=== PATIENT | male | born 1955 | race Caucasian/White ===

== ENCOUNTER 2018-03-31 12:38 | Emergency (ER) | payer BC, MEDICAID, OTHER ==
[~2018-03-31] VITALS: Ht 185.4 cm; Wt 105.0 kg
[~2018-03-31 12:38] MED LIST: ATOR10TA PO; LISI-604 PO; PANT-47 PO; PHEN100C4 PO
[2018-03-31 13:16] LABS: BASOPHILS % (AUTO) 0.7 % (0-1); EOSINOPHILS # (AUTO) 0.2 X10'3 (0-0.9); EOSINOPHILS % (AUTO) 3.3 % (0-6); HEMATOCRIT 43.3 % (42.0-52.0); HEMOGLOBIN 14.8 g/dl (14.0-17.9); LYMPHOCYTES # (AUTO) 1.3 X10'3 (1.1-4.8); LYMPHOCYTES % (AUTO) 24.8 % (21-51); MEAN CORPUSCULAR HEMOGLOBIN 33.7 PG (27.0-31.0); MEAN CORPUSCULAR HGB CONC 34.2 % (33.0-36.5); MEAN CORPUSCULAR VOLUME 98.4 FL (78-98); MEAN PLATELET VOLUME 8.8 FL (7.4-10.4); MONOCYTES # (AUTO) 0.7 X10'3 (0-0.9); MONOCYTES % (AUTO) 12.9 % (2-12); NEUTROPHILS # (AUTO) 3.2 X10'3 (1.8-7.7); NEUTROPHILS % (AUTO) 58.3 % (42-75); PLATELET COUNT 165 X10'3 (140-440); WHITE BLOOD COUNT 5.4 X10'3 (4.5-11.0)
[2018-03-31 13:31] LABS: ALANINE AMINOTRANSFERASE 60 U/L (12-78); ALBUMIN 3.6 G/DL (3.4-5.0); ALBUMIN/GLOBULIN RATIO 1.2 (1.1-1.5); ALKALINE PHOSPHATASE 97 IU/L (46-116); ANION GAP 8 (8-16); ASPARTATE AMINO TRANSFERASE 25 U/L (10-37); BILIRUBIN,TOTAL 0.4 MG/DL (0.1-1.0); BLOOD UREA NITROGEN 12 MG/DL (7-18); CALCIUM 11.2 MG/DL (8.5-10.1); CHLORIDE 107 MMOL/L (99-107); GLUCOSE 162 MG/DL (70-104); POTASSIUM 4.1 MMOL/L (3.5-5.1); SODIUM 141 MMOL/L (135-145); TOTAL CARBON DIOXIDE 25.8 MMOL/L (24-32); TOTAL PROTEIN 6.6 G/DL (6.4-8.2); eGFR 75 ML/MIN
[2018-03-31 14:10] VITALS: BP 150/85
== END 2018-03-31 14:11 | disposition home or self-care (01) ==
LOC: ER 12:39
DX: R42 Dizziness and giddiness (principal); R11.2 Nausea with vomiting, unspecified; R53.83 Other fatigue; R19.7 Diarrhea, unspecified; I10 Essential (primary) hypertension; Z90.49 Acquired absence of other specified parts of digestive tract; Z88.6 Allergy status to analgesic agent; Z88.8 Allergy status to other drugs, medicaments and biological substances; Z79.899 Other long term (current) drug therapy; Z98.890 Other specified postprocedural states
CPT/HCPCS: 36415; 80053; 80185; 85025; 99284

== ENCOUNTER 2018-04-20 07:23 | Outpatient (CLI) | payer BC | END 2018-04-20 23:59 | disposition home or self-care (01) | LOC: RAD 07:23 | PROVIDERS: ATTEND Family Medicine | DX: G40.909 Epilepsy, unspecified, not intractable, without status epilepticus (principal); R42 Dizziness and giddiness; I10 Essential (primary) hypertension; Z87.891 Personal history of nicotine dependence | CPT/HCPCS: 95816 ==

== ENCOUNTER 2018-06-30 20:51 | Inpatient (IN) | payer BC ==
[~2018-06-30] VITALS: Ht 185.4 cm; Wt 102.0 kg
[2018-06-30 21:15] LABS: BASOPHILS % (AUTO) 0.4 % (0-1); EOSINOPHILS # (AUTO) 0.1 X10'3 (0-0.9); EOSINOPHILS % (AUTO) 0.9 % (0-6); HEMATOCRIT 41.6 % (42.0-52.0); HEMOGLOBIN 14.5 g/dl (14.0-17.9); LYMPHOCYTES # (AUTO) 1.3 X10'3 (1.1-4.8); LYMPHOCYTES % (AUTO) 13.9 % (21-51); MEAN CORPUSCULAR HEMOGLOBIN 33.9 PG (27.0-31.0); MEAN CORPUSCULAR HGB CONC 34.7 % (33.0-36.5); MEAN CORPUSCULAR VOLUME 97.6 FL (78-98); MEAN PLATELET VOLUME 8.7 FL (7.4-10.4); MONOCYTES # (AUTO) 1.2 X10'3 (0-0.9); MONOCYTES % (AUTO) 12.9 % (2-12); NEUTROPHILS # (AUTO) 6.8 X10'3 (1.8-7.7); NEUTROPHILS % (AUTO) 71.9 % (42-75); PLATELET COUNT 142 X10'3 (140-440); RED BLOOD COUNT 4.26 X10'6 (4.70-6.10); RED CELL DISTRIBUTION WIDTH 11.6 % (11.5-14.5); WHITE BLOOD COUNT 9.5 X10'3 (4.5-11.0)
[2018-06-30] MEDS ORDERED: ondansetron/PF 4mg/2ml inj IV ONE ×2 (21:25→22:25)
[2018-06-30] MEDS ORDERED: morphine 4 MG/ML inj SYRINge IV ONE ×2 (21:25→23:10)
[2018-06-30 21:27] LABS: PARTIAL THROMBOPLASTIN TIME 25 SECONDS (22-32); PROTHROMBIN TIME 10.1 SECONDS (9.0-12.0)
[2018-06-30 21:37] LABS: ALANINE AMINOTRANSFERASE 49 U/L (12-78); ALBUMIN 3.6 G/DL (3.4-5.0); ALBUMIN/GLOBULIN RATIO 1.1 (1.1-1.5); ALKALINE PHOSPHATASE 113 IU/L (46-116); ANION GAP 8 (8-16); ASPARTATE AMINO TRANSFERASE 20 U/L (10-37); BILIRUBIN,TOTAL 0.4 MG/DL (0.1-1.0); BLOOD UREA NITROGEN 12 MG/DL (7-18); BUN/CREATININE RATIO 10.7 (5.4-32.0); CALCIUM 10.8 MG/DL (8.5-10.1); CHLORIDE 104 MMOL/L (99-107); CREATININE 1.12 MG/DL (0.60-1.10); GLUCOSE 182 MG/DL (70-104); SODIUM 137 MMOL/L (135-145); TOTAL CARBON DIOXIDE 25.2 MMOL/L (24-32); TOTAL PROTEIN 6.9 G/DL (6.4-8.2); eGFR 66 ML/MIN
[2018-06-30] MEDS ORDERED: iohexol 350MG/ML 100ml bottle IV ONE (21:49)
[2018-06-30] MEDS ORDERED: heparin 10,000 units/1 ML INJ IV ONE (23:15)
[2018-06-30] MEDS ORDERED: heparin 10,000 units/1 ML INJ IV PRN (23:15)
[2018-06-30] MEDS ORDERED: PHEN100C4 PO (23:22)
[2018-06-30 23:37] LABS: BASOPHILS % (AUTO) 0.3 % (0-1); EOSINOPHILS % (AUTO) 0.1 % (0-6); HEMATOCRIT 40.9 % (42.0-52.0); HEMOGLOBIN 14.2 g/dl (14.0-17.9); LYMPHOCYTES % (AUTO) 10.2 % (21-51); MEAN CORPUSCULAR HEMOGLOBIN 33.8 PG (27.0-31.0); MEAN CORPUSCULAR HGB CONC 34.7 % (33.0-36.5); MEAN CORPUSCULAR VOLUME 97.2 FL (78-98); MEAN PLATELET VOLUME 8.7 FL (7.4-10.4); MONOCYTES # (AUTO) 1.1 X10'3 (0-0.9); MONOCYTES % (AUTO) 10.7 % (2-12); NEUTROPHILS # (AUTO) 7.9 X10'3 (1.8-7.7); NEUTROPHILS % (AUTO) 78.7 % (42-75); PLATELET COUNT 137 X10'3 (140-440); RED BLOOD COUNT 4.21 X10'6 (4.70-6.10); WHITE BLOOD COUNT 10.1 X10'3 (4.5-11.0)
[2018-07-01] MEDS ORDERED: acetaminophen 325mg tablet PO PRN (01:45)
[2018-07-01] MEDS ORDERED: potassium Cl 40MEQ/NS 500ml 500 ML IV PRN ×2 (01:45)
[2018-07-01] MEDS ORDERED: heparin 10,000 units/1 ML INJ IV PRN (01:45)
[2018-07-01] MEDS ORDERED: magnesium hydroxide 30ml (MOM) UD suspension PO PRN (01:45)
[2018-07-01] MEDS ORDERED: ondansetron/PF 4mg/2ml inj IV PRN (01:45)
[2018-07-01] MEDS ORDERED: mag hydrox/Alum hydrox/simeth 30ml oral suspension PO PRN (01:45)
[2018-07-01] MEDS ORDERED: magnesium 4gm in 100ml NS 100 ML IV PRN (01:45)
[2018-07-01] MEDS ORDERED: ipratropium/albuterol 3ml nebule NEB PRN (01:45)
[2018-07-01] MEDS ORDERED: morphine 4 MG/ML inj SYRINge IV PRN (01:45)
[2018-07-01] MEDS ORDERED: magnesium 1gm/100ml D5W IVPB 100 ML IV PRN (01:45)
[2018-07-01] MEDS ORDERED: potassium Cl 20 mEq SR tablet PO PRN ×2 (01:45)
[2018-07-01 02:55] VITALS: BP 155/77
[2018-07-01] MEDS: morphine 4 MG/ML inj SYRINge IV PRN ×5 (03:01→19:08)
[2018-07-01] MEDS: normal saline 1000ml 1,000 ML IV SCH ×3 (03:49→15:02)
[2018-07-01] MEDS ORDERED: nitroGLYCERIN 0.4mg/hour patch TD ONE (04:45)
[2018-07-01 06:00] VITALS: BP 155/76
[2018-07-01 06:05] LABS: BASOPHILS % (AUTO) 0.3 % (0-1); EOSINOPHILS # (AUTO) 0.1 X10'3 (0-0.9); EOSINOPHILS % (AUTO) 1.1 % (0-6); HEMOGLOBIN 14.2 g/dl (14.0-17.9); LYMPHOCYTES # (AUTO) 1.3 X10'3 (1.1-4.8); LYMPHOCYTES % (AUTO) 13.2 % (21-51); MEAN CORPUSCULAR HEMOGLOBIN 34.1 PG (27.0-31.0); MEAN CORPUSCULAR HGB CONC 34.7 % (33.0-36.5); MEAN CORPUSCULAR VOLUME 98.4 FL (78-98); MEAN PLATELET VOLUME 9.5 FL (7.4-10.4); MONOCYTES # (AUTO) 1.4 X10'3 (0-0.9); MONOCYTES % (AUTO) 14.1 % (2-12); NEUTROPHILS # (AUTO) 7.3 X10'3 (1.8-7.7); NEUTROPHILS % (AUTO) 71.3 % (42-75); PLATELET COUNT 133 X10'3 (140-440); RED BLOOD COUNT 4.16 X10'6 (4.70-6.10); RED CELL DISTRIBUTION WIDTH 12.1 % (11.5-14.5); WHITE BLOOD COUNT 10.2 X10'3 (4.5-11.0)
[2018-07-01 06:26] LABS: PROTHROMBIN TIME 10.7 SECONDS (9.0-12.0)
[2018-07-01] MEDS: K and/or MAG REPLACEMENT MC SCH (08:00)
[2018-07-01] MEDS ORDERED: atorvastatin 10mg tablet PO SCH (09:05)
[2018-07-01 09:42] LABS: PARTIAL THROMBOPLASTIN TIME 38 SECONDS (22-32)
[2018-07-01] MEDS: pantoprazole 40mg Tablet.DR PO SCH (09:43)
[2018-07-01] MEDS: lisinopril 10 MG tablet PO SCH (09:43)
[2018-07-01] MEDS: phenytoin sod ER 100mg capsule PO SCH ×2 (10:25→19:03)
[2018-07-01 11:00] VITALS: BP 115/65
[2018-07-01] MEDS ORDERED: enoxaparin 100mg/ml syringe SUBCUT SCH ×2 (11:15→20:00)
[2018-07-01] MEDS: enoxaparin 100mg/ml syringe SUBCUT SCH (13:00)
[2018-07-01 15:00] VITALS: BP 117/70
[2018-07-01 19:00] VITALS: BP 126/73
[2018-07-01] MEDS ORDERED: warfarin 5mg tablet PO ONE (21:00)
[2018-07-01] MEDS: docusate sod 250mg capsule PO SCH (21:40)
[2018-07-01 23:00] VITALS: BP 126/66
[2018-07-01] MEDS: HYDROcodone/acetaminophen 10/325mg tab PO PRN (23:32)
[2018-07-02] MEDS: enoxaparin 100mg/ml syringe SUBCUT SCH ×2 (01:34→12:51)
[2018-07-02 03:00] VITALS: BP 141/75
[2018-07-02 06:00] VITALS: BP 153/66
[2018-07-02 06:11] LABS: BASOPHILS % (AUTO) 0.2 % (0-1); EOSINOPHILS # (AUTO) 0.1 X10'3 (0-0.9); EOSINOPHILS % (AUTO) 1.7 % (0-6); HEMATOCRIT 37.1 % (42.0-52.0); HEMOGLOBIN 12.7 g/dl (14.0-17.9); LYMPHOCYTES # (AUTO) 1.3 X10'3 (1.1-4.8); LYMPHOCYTES % (AUTO) 15.5 % (21-51); MEAN CORPUSCULAR HEMOGLOBIN 33.7 PG (27.0-31.0); MEAN CORPUSCULAR HGB CONC 34.2 % (33.0-36.5); MEAN CORPUSCULAR VOLUME 98.4 FL (78-98); MEAN PLATELET VOLUME 9.2 FL (7.4-10.4); MONOCYTES # (AUTO) 1.4 X10'3 (0-0.9); MONOCYTES % (AUTO) 16.3 % (2-12); NEUTROPHILS # (AUTO) 5.5 X10'3 (1.8-7.7); NEUTROPHILS % (AUTO) 66.3 % (42-75); PLATELET COUNT 125 X10'3 (140-440); RED BLOOD COUNT 3.77 X10'6 (4.70-6.10); WHITE BLOOD COUNT 8.4 X10'3 (4.5-11.0)
[2018-07-02 06:53] LABS: PROTHROMBIN TIME 10.8 SECONDS (9.0-12.0)
[2018-07-02 07:11] LABS: ALANINE AMINOTRANSFERASE 152 U/L (12-78); ALBUMIN 2.8 G/DL (3.4-5.0); ALBUMIN/GLOBULIN RATIO 0.8 (1.1-1.5); ALKALINE PHOSPHATASE 98 IU/L (46-116); ANION GAP 7 (8-16); ASPARTATE AMINO TRANSFERASE 57 U/L (10-37); BILIRUBIN,TOTAL 0.6 MG/DL (0.1-1.0); BLOOD UREA NITROGEN 14 MG/DL (7-18); BUN/CREATININE RATIO 13.9 (5.4-32.0); CALCIUM 10.5 MG/DL (8.5-10.1); CHLORIDE 103 MMOL/L (99-107); CHOL/HDL RATIO 3.4 (0.00-4.99); CHOLESTEROL 155 MG/DL (0-200); CREATININE 1.01 MG/DL (0.60-1.10); GLUCOSE 146 MG/DL (70-104); HDL CHOLESTEROL 45 MG/DL (35-60); LDL CHOLESTEROL 88 MG/DL (50-100); MAGNESIUM 1.9 MG/DL (1.5-2.4); POTASSIUM 3.9 MMOL/L (3.5-5.1); SODIUM 136 MMOL/L (135-145); TOTAL CARBON DIOXIDE 25.8 MMOL/L (24-32); TOTAL PROTEIN 6.2 G/DL (6.4-8.2); TRIGLYCERIDES 135 MG/DL (20-135); eGFR 74 ML/MIN
[2018-07-02] MEDS: K and/or MAG REPLACEMENT MC SCH (08:00)
[2018-07-02] MEDS: phenytoin sod ER 100mg capsule PO SCH ×2 (08:06→19:17)
[2018-07-02] MEDS: HYDROcodone/acetaminophen 10/325mg tab PO PRN ×3 (08:07→17:20)
[2018-07-02] MEDS: pantoprazole 40mg Tablet.DR PO SCH (08:07)
[2018-07-02] MEDS: lisinopril 10 MG tablet PO SCH (08:07)
[2018-07-02 11:00] VITALS: BP 157/74
[2018-07-02] MEDS: normal saline 1000ml 1,000 ML IV SCH ×2 (16:28→19:26)
[2018-07-02 19:00] VITALS: BP 146/71
[2018-07-02] MEDS ORDERED: warfarin 7.5mg tablet PO ONE (21:00)
[2018-07-02] MEDS: docusate sod 250mg capsule PO SCH (21:19)
[2018-07-02 23:00] VITALS: BP 148/74
[2018-07-03] MEDS: HYDROcodone/acetaminophen 10/325mg tab PO PRN ×2 (00:45→07:53)
[2018-07-03] MEDS: enoxaparin 100mg/ml syringe SUBCUT SCH ×2 (00:45→13:18)
[2018-07-03 03:00] VITALS: BP 152/64
[2018-07-03 04:56] LABS: BASOPHILS % (AUTO) 0.4 % (0-1); EOSINOPHILS # (AUTO) 0.1 X10'3 (0-0.9); EOSINOPHILS % (AUTO) 1.4 % (0-6); HEMATOCRIT 36.3 % (42.0-52.0); HEMOGLOBIN 12.4 g/dl (14.0-17.9); LYMPHOCYTES # (AUTO) 1.4 X10'3 (1.1-4.8); LYMPHOCYTES % (AUTO) 18.1 % (21-51); MEAN CORPUSCULAR HEMOGLOBIN 33.6 PG (27.0-31.0); MEAN CORPUSCULAR HGB CONC 34.2 % (33.0-36.5); MEAN CORPUSCULAR VOLUME 98.2 FL (78-98); MEAN PLATELET VOLUME 9.5 FL (7.4-10.4); MONOCYTES # (AUTO) 1.2 X10'3 (0-0.9); MONOCYTES % (AUTO) 15.1 % (2-12); NEUTROPHILS # (AUTO) 5.3 X10'3 (1.8-7.7); PLATELET COUNT 137 X10'3 (140-440); RED BLOOD COUNT 3.69 X10'6 (4.70-6.10); RED CELL DISTRIBUTION WIDTH 11.1 % (11.5-14.5)
[2018-07-03 05:18] LABS: PROTHROMBIN TIME 10.7 SECONDS (9.0-12.0)
[2018-07-03 06:14] LABS: ALANINE AMINOTRANSFERASE 91 U/L (12-78); ALBUMIN 2.6 G/DL (3.4-5.0); ALBUMIN/GLOBULIN RATIO 0.7 (1.1-1.5); ALKALINE PHOSPHATASE 86 IU/L (46-116); ANION GAP 7 (8-16); ASPARTATE AMINO TRANSFERASE 20 U/L (10-37); BILIRUBIN,TOTAL 0.5 MG/DL (0.1-1.0); BLOOD UREA NITROGEN 12 MG/DL (7-18); CALCIUM 10.2 MG/DL (8.5-10.1); CHLORIDE 106 MMOL/L (99-107); GLUCOSE 137 MG/DL (70-104); MAGNESIUM 1.9 MG/DL (1.5-2.4); POTASSIUM 3.8 MMOL/L (3.5-5.1); SODIUM 136 MMOL/L (135-145); TOTAL CARBON DIOXIDE 22.8 MMOL/L (24-32); TOTAL PROTEIN 6.1 G/DL (6.4-8.2); eGFR 75 ML/MIN
[2018-07-03 07:00] VITALS: BP 148/78
[2018-07-03] MEDS: pantoprazole 40mg Tablet.DR PO SCH (07:52)
[2018-07-03] MEDS: lisinopril 10 MG tablet PO SCH (07:52)
[2018-07-03] MEDS: phenytoin sod ER 100mg capsule PO SCH (07:52)
[2018-07-03] MEDS: K and/or MAG REPLACEMENT MC SCH (07:56)
[2018-07-03] MEDS: normal saline 1000ml 1,000 ML IV SCH (10:31)
[2018-07-03 12:21] VITALS: BP 138/67
[2018-07-03] MEDS ORDERED: LISI10TA4 PO (13:40)
[2018-07-03] MEDS ORDERED: ENOX100D5 SUBCUT (13:40)
[2018-07-03] MEDS ORDERED: WARF10TA50 PO (13:40)
[2018-07-03] MEDS ORDERED: warfarin 10mg tablet PO ONE (21:00)
== END 2018-07-03 14:55 | disposition home or self-care (01) | DRG 176 ==
LOC: ER 20:52 → ED HOLD 07-01 01:45 → PCU 3S 07-01 02:53
PROVIDERS: ADMIT Family Medicine; ATTEND Family Medicine
PROC: B32T1ZZ Computerized Tomography (CT Scan) of Left Pulmonary Artery using Low Osmolar Contrast (ICD-10-PCS; principal; 2018-06-30)
PROC: B3201ZZ Computerized Tomography (CT Scan) of Thoracic Aorta using Low Osmolar Contrast (ICD-10-PCS; 2018-06-30)
PROC: B32S1ZZ Computerized Tomography (CT Scan) of Right Pulmonary Artery using Low Osmolar Contrast (ICD-10-PCS; 2018-06-30)
DX: I26.99 Other pulmonary embolism without acute cor pulmonale (principal); G40.909 Epilepsy, unspecified, not intractable, without status epilepticus; I07.1 Rheumatic tricuspid insufficiency; R91.1 Solitary pulmonary nodule; R79.89 Other specified abnormal findings of blood chemistry; I10 Essential (primary) hypertension; Z82.49 Family history of ischemic heart disease and other diseases of the circulatory system; Z80.8 Family history of malignant neoplasm of other organs or systems; Z87.891 Personal history of nicotine dependence; Z90.49 Acquired absence of other specified parts of digestive tract; Z79.899 Other long term (current) drug therapy; Z88.6 Allergy status to analgesic agent; Z88.8 Allergy status to other drugs, medicaments and biological substances; Z91.018 Allergy to other foods
CPT/HCPCS: 36415; 71045; 71275; 80053; 80061; 83735; 84484; 85025; 85610; 85730; 87070; 93005; 93306; 93970; 94760; 96374; 96375; 96376; 99285; J1644; J1650; J2270; J2405; J7030; Q9967

== ENCOUNTER 2024-01-26 12:59 | Emergency (ER) | payer MEDICARE, OTHER ==
[~2024-01-26] VITALS: Ht 185.4 cm; Wt 104.1 kg
[~2024-01-26 12:59] MED LIST changes: -ATOR10TA PO; +ENOX100D5 SUBCUT; -LISI-604 PO; +LISI10TA27 PO; -PANT-47 PO; +WARF10TA50 PO
[2024-01-26] MEDS ORDERED: TIZA4TAB11 PO (15:16)
[2024-01-26 15:23] VITALS: BP 148/74; PULSE 88; RESP 15; TEMP 98.2; O2SAT 96
== END 2024-01-26 15:26 | disposition home or self-care (01) ==
LOC: ER 12:59
DX: M25.512 Pain in left shoulder (principal); I10 Essential (primary) hypertension; Z88.6 Allergy status to analgesic agent; Z88.8 Allergy status to other drugs, medicaments and biological substances; Z91.018 Allergy to other foods; Z79.899 Other long term (current) drug therapy; Z90.49 Acquired absence of other specified parts of digestive tract
CPT/HCPCS: 73030; 99283; A4565

== ENCOUNTER 2024-01-31 13:37 | Emergency (ER) | payer MEDICARE, OTHER ==
[~2024-01-31] VITALS: Ht 185.4 cm; Wt 104.1 kg
[~2024-01-31 13:37] MED LIST changes: +TIZA4TAB11 PO
[2024-01-31] MEDS ORDERED: PER5325T PO (14:54)
[2024-01-31] MEDS: oxyCODONE/APAP 5-325mg tablet PO ONE (15:10)
[2024-01-31] MEDS: dexamethasone sod phosphate 10mg/ml inj PO STA (15:10)
[2024-01-31] MEDS: normal saline 1000ml 1,000 ML IV ONE (16:40)
[2024-01-31 17:20] VITALS: BP 150/73; PULSE 60; RESP 18; O2SAT 97
[2024-01-31 19:25] VITALS: TEMP 98.1
== END 2024-01-31 19:30 | disposition home or self-care (01) ==
LOC: ER 13:38
DX: S46.912A Strain of unspecified muscle, fascia and tendon at shoulder and upper arm level, left arm, initial encounter (principal); I10 Essential (primary) hypertension; Z88.6 Allergy status to analgesic agent; Z88.8 Allergy status to other drugs, medicaments and biological substances; Z91.018 Allergy to other foods; Z79.899 Other long term (current) drug therapy; Z90.49 Acquired absence of other specified parts of digestive tract; X58.XXXA Exposure to other specified factors, initial encounter; Y93.89 Activity, other specified; Y92.89 Other specified places as the place of occurrence of the external cause; Y99.8 Other external cause status
CPT/HCPCS: 96360; 99284; J1100; J7030

== ENCOUNTER 2024-02-23 15:15 | Inpatient (IN) | payer MEDICARE, OTHER ==
[~2024-02-23] VITALS: Ht 185.4 cm; Wt 90.0 kg
[2024-02-23 17:23] LABS: BILIRUBIN,URINE NEGATIVE (Neg); CLARITY,URINE SLIGHTLY CLOUDY (Clear); GLUCOSE, URINE NEGATIVE (Neg); KETONES,URINE NEGATIVE (Neg); LEUKOCYTE ESTERASE ,URINE NEGATIVE (Neg); NITRITES, URINE NEGATIVE (Neg); OCCULT BLOOD,URINE NEGATIVE (Neg); PH,URINE 5.5 (4.8-8.0); PROTEIN,URINE NEGATIVE (Neg); UROBILINOGEN,URINE 0.2 E.U/dL (0.2-1.0)
[2024-02-23 17:26] LABS: COLOR,URINE DARK YELLOW (Yellow); UA COLLECTION TYPE VOIDED
[2024-02-23] MEDS: CefTRIAXone/D5W-Rocephin 1gm 50 ML IV ONE (17:31)
[2024-02-23] MEDS: normal saline 1000ML IV soln IVB ONE (17:31)
[2024-02-23 17:36] LABS: BACTERIA,URINE FEW /HPF (Neg); CELLULAR CAST 0-4 /LPF (NEGATIVE); RBC,URINE NONE SEEN /HPF (0-2); SQUAMOUS EPITHELIAL CELL,UR NONE SEEN /LPF (FEW)
[2024-02-23 17:37] LABS: CAL OXALATE CRYSTALS 1+ /HPF (NEGATIVE); MUCUS STRANDS FEW /LPF (Neg)
[2024-02-23 17:49] LABS: BASOPHILS % (AUTO) 0.2 % (0-1); EOSINOPHILS % (AUTO) 0.4 % (0-6); HEMOGLOBIN 12.5 g/dl (14.0-17.9); LYMPHOCYTES # (AUTO) 0.9 X10'3 (1.1-4.8); LYMPHOCYTES % (AUTO) 7.2 % (21-51); MEAN CORPUSCULAR HEMOGLOBIN 33.3 PG (27.0-31.0); MEAN CORPUSCULAR HGB CONC 33.8 g/dL (33.0-36.5); MEAN CORPUSCULAR VOLUME 98.6 FL (78-98); MEAN PLATELET VOLUME 8.8 FL (7.4-10.4); MONOCYTES # (AUTO) 1.3 X10'3 (0-0.9); NEUTROPHILS # (AUTO) 10.5 X10'3 (1.8-7.7); NEUTROPHILS % (AUTO) 82.2 % (42-75); PLATELET COUNT 251 X10'3 (140-440); RED BLOOD COUNT 3.76 X10'6 (4.70-6.10); WHITE BLOOD COUNT 12.8 X10'3 (4.5-11.0)
[2024-02-23 18:09] LABS: ALBUMIN 2.2 G/DL (3.4-5.0); ANION GAP 7 (8-16); BLOOD UREA NITROGEN 27 MG/DL (7-18); BUN/CREATININE RATIO 17.4 (10.0-20.0); CALCIUM 11.9 MG/DL (8.5-10.1); CHLORIDE 108 MMOL/L (99-107); CREATININE 1.55 MG/DL (0.60-1.10); GLUCOSE 191 MG/DL (70-104); MAGNESIUM 1.9 MG/DL (1.5-2.4); PHENYTOIN (DILANTIN) 1.1 UG/ML (10.0-20.0); POTASSIUM 3.8 MMOL/L (3.5-5.1); SODIUM 141 MMOL/L (135-145); TOTAL CARBON DIOXIDE 25.7 MMOL/L (24-32); eCRCL 50 ML/MIN; eGFR 45 ML/MIN
[2024-02-23] MEDS ORDERED: potassium Cl 20 mEq SR tablet PO PRN ×2 (21:40)
[2024-02-23] MEDS ORDERED: magnesium 2GM in 50ml NS 50 ML IV PRN (21:40)
[2024-02-23] MEDS ORDERED: magnesium hydroxide 30ml (MOM) UD suspension PO PRN (21:40)
[2024-02-23] MEDS ORDERED: potassium Cl 40MEQ/1/2NS 520ml 520 ML IV PRN (21:40)
[2024-02-23] MEDS ORDERED: acetaminophen 325mg tablet PO PRN (21:40)
[2024-02-23] MEDS ORDERED: magnesium 4gm in 100ml NS 100 ML IV PRN (21:40)
[2024-02-23] MEDS ORDERED: ondansetron/PF 4mg/2ml inj IV PRN (21:40)
[2024-02-23] MEDS: normal saline 1000ml 1,000 ML IV SCH (21:40)
[2024-02-23] MEDS ORDERED: morphine 2 MG/ML inj. syringe IV PRN ×2 (21:40)
[2024-02-23 22:38] LABS: MAGNESIUM 1.9 MG/DL (1.5-2.4)
[2024-02-24] MEDS: phenytoin sod ER 100mg capsule PO SCH (03:08)
[2024-02-24 07:38] VITALS: BP 138/70; PULSE 74; RESP 16; TEMP 97.8; O2SAT 98
[2024-02-24] MEDS: K and/or MAG REPLACEMENT MC SCH (08:00)
[2024-02-24 08:57] LABS: BASOPHILS % (AUTO) 0.4 % (0-1); EOSINOPHILS # (AUTO) 0.2 X10'3 (0-0.9); EOSINOPHILS % (AUTO) 2.3 % (0-6); HEMATOCRIT 35.3 % (42.0-52.0); HEMOGLOBIN 11.8 g/dl (14.0-17.9); LYMPHOCYTES # (AUTO) 1.3 X10'3 (1.1-4.8); MEAN CORPUSCULAR HEMOGLOBIN 33.3 PG (27.0-31.0); MEAN CORPUSCULAR HGB CONC 33.6 g/dL (33.0-36.5); MEAN PLATELET VOLUME 9.1 FL (7.4-10.4); MONOCYTES # (AUTO) 0.9 X10'3 (0-0.9); MONOCYTES % (AUTO) 11.9 % (2-12); NEUTROPHILS # (AUTO) 5.3 X10'3 (1.8-7.7); NEUTROPHILS % (AUTO) 68.4 % (42-75); PLATELET COUNT 219 X10'3 (140-440); RED BLOOD COUNT 3.56 X10'6 (4.70-6.10); RED CELL DISTRIBUTION WIDTH 12.1 % (11.5-14.5); WHITE BLOOD COUNT 7.8 X10'3 (4.5-11.0)
[2024-02-24 09:19] LABS: ALANINE AMINOTRANSFERASE 69 U/L (12-78); ALBUMIN/GLOBULIN RATIO 0.5 (1.1-1.5); ALKALINE PHOSPHATASE 121 IU/L (46-116); ANION GAP 4 (8-16); ASPARTATE AMINO TRANSFERASE 43 U/L (10-37); BILIRUBIN,TOTAL 0.5 MG/DL (0.1-1.0); BLOOD UREA NITROGEN 21 MG/DL (7-18); BUN/CREATININE RATIO 16.9 (10.0-20.0); CALCIUM 11.5 MG/DL (8.5-10.1); CHLORIDE 110 MMOL/L (99-107); CREATININE 1.24 MG/DL (0.60-1.10); GLUCOSE 122 MG/DL (70-104); POTASSIUM 3.6 MMOL/L (3.5-5.1); SODIUM 140 MMOL/L (135-145); TOTAL CARBON DIOXIDE 26.3 MMOL/L (24-32); TOTAL PROTEIN 5.7 G/DL (6.4-8.2); eCRCL 63 ML/MIN; eGFR 58 ML/MIN
[2024-02-24 10:00] VITALS: BP 132/68; PULSE 64; RESP 14; TEMP 97.5
[2024-02-24] MEDS: lisinopril 10 MG tablet PO SCH (10:37)
[2024-02-24] MEDS: apixaban 5mg tablet PO SCH (10:37)
[2024-02-24] MEDS: HYDROcodone/acetaminophen 5mg/325mg tablet PO PRN (19:57)
[2024-02-24 21:42] VITALS: BP 140/61; PULSE 60; RESP 16; TEMP 97.9; O2SAT 96
[2024-02-25 06:26] VITALS: BP 136/59; PULSE 67; RESP 15; TEMP 97.9; O2SAT 98
[2024-02-25 06:57] LABS: BASOPHILS % (AUTO) 0.6 % (0-1); EOSINOPHILS # (AUTO) 0.3 X10'3 (0-0.9); EOSINOPHILS % (AUTO) 4.2 % (0-6); HEMATOCRIT 34.7 % (42.0-52.0); HEMOGLOBIN 11.7 g/dl (14.0-17.9); LYMPHOCYTES # (AUTO) 1.7 X10'3 (1.1-4.8); LYMPHOCYTES % (AUTO) 22.1 % (21-51); MEAN CORPUSCULAR HEMOGLOBIN 33.2 PG (27.0-31.0); MEAN CORPUSCULAR HGB CONC 33.7 g/dL (33.0-36.5); MEAN CORPUSCULAR VOLUME 98.7 FL (78-98); MEAN PLATELET VOLUME 9.4 FL (7.4-10.4); MONOCYTES # (AUTO) 0.9 X10'3 (0-0.9); MONOCYTES % (AUTO) 12.3 % (2-12); NEUTROPHILS # (AUTO) 4.7 X10'3 (1.8-7.7); NEUTROPHILS % (AUTO) 60.8 % (42-75); PLATELET COUNT 206 X10'3 (140-440); RED BLOOD COUNT 3.51 X10'6 (4.70-6.10); RED CELL DISTRIBUTION WIDTH 11.9 % (11.5-14.5); WHITE BLOOD COUNT 7.7 X10'3 (4.5-11.0)
[2024-02-25 07:20] LABS: ALANINE AMINOTRANSFERASE 70 U/L (12-78); ALBUMIN/GLOBULIN RATIO 0.6 (1.1-1.5); ALKALINE PHOSPHATASE 115 IU/L (46-116); ANION GAP 5 (8-16); ASPARTATE AMINO TRANSFERASE 39 U/L (10-37); BILIRUBIN,TOTAL 0.4 MG/DL (0.1-1.0); BLOOD UREA NITROGEN 19 MG/DL (7-18); BUN/CREATININE RATIO 18.1 (10.0-20.0); CALCIUM 11.4 MG/DL (8.5-10.1); CHLORIDE 110 MMOL/L (99-107); CREATININE 1.05 MG/DL (0.60-1.10); GLUCOSE 110 MG/DL (70-104); POTASSIUM 3.5 MMOL/L (3.5-5.1); SODIUM 139 MMOL/L (135-145); TOTAL CARBON DIOXIDE 24.2 MMOL/L (24-32); TOTAL PROTEIN 5.5 G/DL (6.4-8.2); eCRCL 74 ML/MIN; eGFR 70 ML/MIN
[2024-02-25] MEDS: acetaminophen 325mg tablet PO PRN (07:59)
[2024-02-25 10:00] VITALS: BP 142/65; PULSE 74; RESP 19; TEMP 97.7; O2SAT 98
[2024-02-25 19:00] VITALS: RESP 18; O2SAT 96
[2024-02-25 20:06] VITALS: BP 151/70
[2024-02-26 08:15] LABS: BASOPHILS # (AUTO) 0.1 X10'3 (0-0.2); BASOPHILS % (AUTO) 0.8 % (0-1); EOSINOPHILS # (AUTO) 0.3 X10'3 (0-0.9); HEMATOCRIT 35.3 % (42.0-52.0); HEMOGLOBIN 12.1 g/dl (14.0-17.9); LYMPHOCYTES # (AUTO) 1.4 X10'3 (1.1-4.8); LYMPHOCYTES % (AUTO) 19.7 % (21-51); MEAN CORPUSCULAR HEMOGLOBIN 33.7 PG (27.0-31.0); MEAN CORPUSCULAR HGB CONC 34.2 g/dL (33.0-36.5); MEAN CORPUSCULAR VOLUME 98.4 FL (78-98); MEAN PLATELET VOLUME 9.1 FL (7.4-10.4); MONOCYTES # (AUTO) 0.8 X10'3 (0-0.9); MONOCYTES % (AUTO) 10.9 % (2-12); NEUTROPHILS # (AUTO) 4.6 X10'3 (1.8-7.7); NEUTROPHILS % (AUTO) 64.6 % (42-75); PLATELET COUNT 204 X10'3 (140-440); RED BLOOD COUNT 3.59 X10'6 (4.70-6.10); WHITE BLOOD COUNT 7.2 X10'3 (4.5-11.0)
[2024-02-26 08:33] LABS: ALANINE AMINOTRANSFERASE 67 U/L (12-78); ALBUMIN 2.2 G/DL (3.4-5.0); ALBUMIN/GLOBULIN RATIO 0.6 (1.1-1.5); ALKALINE PHOSPHATASE 125 IU/L (46-116); ANION GAP 3 (8-16); ASPARTATE AMINO TRANSFERASE 35 U/L (10-37); BILIRUBIN,TOTAL 0.4 MG/DL (0.1-1.0); BLOOD UREA NITROGEN 19 MG/DL (7-18); BUN/CREATININE RATIO 15.6 (10.0-20.0); CALCIUM 11.8 MG/DL (8.5-10.1); CHLORIDE 109 MMOL/L (99-107); CREATININE 1.22 MG/DL (0.60-1.10); GLUCOSE 113 MG/DL (70-104); MAGNESIUM 1.9 MG/DL (1.5-2.4); POTASSIUM 3.6 MMOL/L (3.5-5.1); SODIUM 140 MMOL/L (135-145); TOTAL CARBON DIOXIDE 27.9 MMOL/L (24-32); TOTAL PROTEIN 5.8 G/DL (6.4-8.2); eCRCL 64 ML/MIN; eGFR 59 ML/MIN
[2024-02-26] MEDS: HYDROcodone/acetaminophen 10/325mg tab PO PRN (09:47)
[2024-02-26 10:00] VITALS: BP 111/77; PULSE 66; RESP 16; TEMP 97.7; O2SAT 97
[2024-02-26 10:04] VITALS: BP 111/77; PULSE 69; RESP 16; TEMP 97.7; O2SAT 98
[2024-02-26 22:00] VITALS: BP 127/31; PULSE 60; RESP 16; TEMP 98; O2SAT 90
[2024-02-27] VITALS (7 sets, daily range): BP systolic 128–140; BP diastolic 47–66; PULSE 55–76; RESP 16–18; TEMP 97.9–98.5; O2SAT 96–98
[2024-02-27 03:18] LABS: BASOPHILS # (AUTO) 0.1 X10'3 (0-0.2); BASOPHILS % (AUTO) 0.8 % (0-1); EOSINOPHILS # (AUTO) 0.3 X10'3 (0-0.9); EOSINOPHILS % (AUTO) 4.1 % (0-6); HEMATOCRIT 33.5 % (42.0-52.0); HEMOGLOBIN 11.3 g/dl (14.0-17.9); LYMPHOCYTES # (AUTO) 1.5 X10'3 (1.1-4.8); LYMPHOCYTES % (AUTO) 21.2 % (21-51); MEAN CORPUSCULAR HEMOGLOBIN 33.2 PG (27.0-31.0); MEAN CORPUSCULAR HGB CONC 33.7 g/dL (33.0-36.5); MEAN CORPUSCULAR VOLUME 98.4 FL (78-98); MEAN PLATELET VOLUME 9.4 FL (7.4-10.4); MONOCYTES # (AUTO) 0.7 X10'3 (0-0.9); MONOCYTES % (AUTO) 10.5 % (2-12); NEUTROPHILS # (AUTO) 4.5 X10'3 (1.8-7.7); NEUTROPHILS % (AUTO) 63.4 % (42-75); PLATELET COUNT 204 X10'3 (140-440); RED BLOOD COUNT 3.41 X10'6 (4.70-6.10); RED CELL DISTRIBUTION WIDTH 12.1 % (11.5-14.5); WHITE BLOOD COUNT 7.1 X10'3 (4.5-11.0)
[2024-02-27 03:42] LABS: ALANINE AMINOTRANSFERASE 64 U/L (12-78); ALBUMIN/GLOBULIN RATIO 0.6 (1.1-1.5); ALKALINE PHOSPHATASE 122 IU/L (46-116); ANION GAP 4 (8-16); ASPARTATE AMINO TRANSFERASE 35 U/L (10-37); BILIRUBIN,TOTAL 0.3 MG/DL (0.1-1.0); BLOOD UREA NITROGEN 21 MG/DL (7-18); BUN/CREATININE RATIO 16.5 (10.0-20.0); CALCIUM 11.7 MG/DL (8.5-10.1); CHLORIDE 108 MMOL/L (99-107); CREATININE 1.27 MG/DL (0.60-1.10); GLUCOSE 128 MG/DL (70-104); POTASSIUM 3.8 MMOL/L (3.5-5.1); SODIUM 141 MMOL/L (135-145); TOTAL CARBON DIOXIDE 29.3 MMOL/L (24-32); TOTAL PROTEIN 5.6 G/DL (6.4-8.2); eCRCL 61 ML/MIN; eGFR 56 ML/MIN
[2024-02-28] VITALS (7 sets, daily range): BP systolic 125–151; BP diastolic 56–67; PULSE 60–73; RESP 13–18; TEMP 97.9–98.7; O2SAT 96–97
[2024-02-28 06:45] LABS: BASOPHILS # (AUTO) 0.1 X10'3 (0-0.2); BASOPHILS % (AUTO) 0.7 % (0-1); EOSINOPHILS # (AUTO) 0.3 X10'3 (0-0.9); EOSINOPHILS % (AUTO) 3.7 % (0-6); HEMATOCRIT 33.6 % (42.0-52.0); HEMOGLOBIN 11.2 g/dl (14.0-17.9); LYMPHOCYTES # (AUTO) 1.6 X10'3 (1.1-4.8); LYMPHOCYTES % (AUTO) 21.1 % (21-51); MEAN CORPUSCULAR HEMOGLOBIN 33.1 PG (27.0-31.0); MEAN CORPUSCULAR HGB CONC 33.4 g/dL (33.0-36.5); MEAN CORPUSCULAR VOLUME 99.1 FL (78-98); MEAN PLATELET VOLUME 9.2 FL (7.4-10.4); MONOCYTES # (AUTO) 0.9 X10'3 (0-0.9); MONOCYTES % (AUTO) 11.4 % (2-12); NEUTROPHILS # (AUTO) 4.9 X10'3 (1.8-7.7); NEUTROPHILS % (AUTO) 63.1 % (42-75); PLATELET COUNT 194 X10'3 (140-440); RED BLOOD COUNT 3.39 X10'6 (4.70-6.10); WHITE BLOOD COUNT 7.7 X10'3 (4.5-11.0)
[2024-02-28 06:55] LABS: ALANINE AMINOTRANSFERASE 56 U/L (12-78); ALBUMIN/GLOBULIN RATIO 0.6 (1.1-1.5); ALKALINE PHOSPHATASE 123 IU/L (46-116); ANION GAP 6 (8-16); ASPARTATE AMINO TRANSFERASE 28 U/L (10-37); BILIRUBIN,TOTAL 0.3 MG/DL (0.1-1.0); BLOOD UREA NITROGEN 21 MG/DL (7-18); BUN/CREATININE RATIO 19.1 (10.0-20.0); CALCIUM 11.3 MG/DL (8.5-10.1); CHLORIDE 108 MMOL/L (99-107); GLUCOSE 108 MG/DL (70-104); POTASSIUM 3.9 MMOL/L (3.5-5.1); SODIUM 139 MMOL/L (135-145); TOTAL PROTEIN 5.5 G/DL (6.4-8.2); eCRCL 71 ML/MIN; eGFR 66 ML/MIN
[2024-02-29 06:00] VITALS: BP 130/65; PULSE 66; RESP 16; TEMP 97.9; O2SAT 97
[2024-02-29 09:26] LABS: % IRON SATURATION 56 % (11-46); IRON 109 UG/DL (53-167); TOTAL IRON BINDING CAPACITY 194 UG/DL (259-388)
[2024-02-29 10:00] VITALS: BP 135/68; PULSE 72; RESP 14; TEMP 98.1; O2SAT 98
[2024-02-29 13:22] VITALS: RESP 16
[2024-02-29 13:42] LABS: VITAMIN D, 25-HYDROXY 38.4 ng/mL (30.0-100.0)
[2024-03-04 19:25] LABS: PTH-RELATED PEPTIDE <2.0 pmol/L (.)
== END 2024-02-29 13:28 | DRG 563 ==
LOC: ER 15:16 → ED HOLD 23:12 → EDBEDREQ 02-24 06:37 → ORTHO 4S 02-24 07:05
PROVIDERS: ADMIT Internal Medicine; ATTEND Internal Medicine
DX: S46.012A Strain of muscle(s) and tendon(s) of the rotator cuff of left shoulder, initial encounter (principal); N17.9 Acute kidney failure, unspecified; E86.0 Dehydration; Z20.822 Contact with and (suspected) exposure to COVID-19; I10 Essential (primary) hypertension; G89.29 Other chronic pain; M16.12 Unilateral primary osteoarthritis, left hip; E21.3 Hyperparathyroidism, unspecified; X58.XXXA Exposure to other specified factors, initial encounter; Y93.89 Activity, other specified; Y92.89 Other specified places as the place of occurrence of the external cause; Y99.8 Other external cause status; Z90.49 Acquired absence of other specified parts of digestive tract; Z82.49 Family history of ischemic heart disease and other diseases of the circulatory system; Z80.8 Family history of malignant neoplasm of other organs or systems; Z86.711 Personal history of pulmonary embolism; Z79.01 Long term (current) use of anticoagulants; Z88.6 Allergy status to analgesic agent; Z88.8 Allergy status to other drugs, medicaments and biological substances; Z79.899 Other long term (current) drug therapy; M19.90 Unspecified osteoarthritis, unspecified site
CPT/HCPCS: 36415; 70450; 71045; 73221; 73522; 80048; 80053; 80185; 81001; 82306; 83540; 83550; 83605; 83735; 83970; 84100; 84145; 84484; 85025; 87040; 87081; 87088; 87502; 87503; 87811; 93005; 97116; 97162; 97530; 99285; A6213; A6258; A6590; G0378; J0696; J7030